=== PATIENT | female | born 1975 | race Caucasian/White ===

== ENCOUNTER → 2017-07-29 06:56 | Outpatient (CLI) | payer OTHER, SELFPAY ==
[2017-07-29 07:56] LABS: Glucose GTT-Gestation. Fasting 77 mg/dL (<105)
[2017-07-29 08:27] LABS: Glucose GTT-Gestational 1 Hr 176 mg/dL (<190)
[2017-07-29 10:13] LABS: Glucose GTT-Gestational 2 Hr 167 mg/dL (<165)
[2017-07-29 10:57] LABS: Glucose GTT-Gestational 3 Hr 86 L (<145)
== END ==
PROVIDERS: Family Provider Family Medicine; PCP Family Medicine; Visit Provider Obstetrics & Gynecology
DX: O24.912 Unspecified diabetes mellitus in pregnancy, second trimester (principal); Z3A.00 Weeks of gestation of pregnancy not specified
CPT/HCPCS: 36415; 82951; 82952

== ENCOUNTER → 2017-09-08 19:15 | Outpatient (CLI) | payer OTHER, SELFPAY ==
[2017-09-08 21:00] LABS: Group B Strep DNA By PCR Negative (Negative); Internal Control PASS; Specimen Processing Control PASS
[2017-09-08 21:01] LABS: Probe Check PASS
== END ==
PROVIDERS: Visit Provider Obstetrics & Gynecology
DX: Z36.85 Encounter for antenatal screening for Streptococcus B (principal)
CPT/HCPCS: 87081; 87653

== ENCOUNTER 2017-09-25 06:40 | Inpatient (IN) | payer SELFPAY ==
[2017-09-25] MEDS: Lactated Ringers 1,000 ML 50 ML IV (11:30)
[2017-09-25 11:53] LABS: Hematocrit 34.4 % (37-47); Hemoglobin 11.4 g/dl (12.0-15.0); Mean Corp Hgb Conc 33.1 g/gl (32-36); Mean Corpuscular Hgb 31.6 pg (27.0-32.0); Mean Corpuscular Volume 95.3 fL (81-99); Mean Platelet Vol. 10.6 fl (6.2-12.0); Platelet Count 258 K/mm3 (150-450); RBC Distribution Width CV 12.6 % (11.6-14.6); RBC Distribution Width SD 43.6 fl (35.1-43.9); Red Blood Count 3.61 M/mm3 (4.2-5.4); Scan Indicated on CBC? Y/N NO
[2017-09-25] MEDS: Oxytocin 30 units/NS 500 ml 30 UNITS/500 ML IV.SOLN IV (12:15)
[2017-09-25 12:29] VITALS: BMI 48.3
[2017-09-25] MEDS: Nalbuphine 10 MG/ML Ampul IV (14:58)
[2017-09-25] MEDS: Oxytocin 30 units/NS 500 ml 30 UNITS/500 ML IV.SOLN 334 UNITS IV (15:36)
--- NOTE | 2017-09-25 15:58 | PCM.OB.VAG ---
Vaginal Delivery Maternal Presentation: Elective Induction Method of Induction: Pitocin, Amniotomy Amniotic Membrane Rupture Type: Artificial Amniotic Fluid Description: Clear Final SADIE: 10/02/17 Final SADIE Source: US <20 weeks Gestational age: 39 Weeks and 0 Days Date of Procedure: 09/25/17 Pre-Operative Diagnosis: IUP Post-Operative Diagnosis: IUP Surgery/ Procedure Performed: Spontaneous Vaginal Delivery Type of Anesthesia: Local with 1% lidocaine Description of Procedure: Spontaneous vaginal delivery of a viable male with Apgars of 8/9 from an occiput anterior presentation with clear amniotic fluid. No episiotomy. First-degree midline laceration repaired with 3-0 Rapide suture under local. Sponge counts okay. Delivery physician: Bill Shepard MD. Presentation: Vertex Placental Delivery Description: Spontaneous Placenta Disposition: [facility] Cord Vessel Description: 3 Vessels Cord Entanglement: None Estimated Blood Loss: 250 cc A gender: Male (1 minute): 8 (5 minute): 9 Episiotomy Description: None Laceration: Midline, Perineal Extension/lac, 1st degree Medications given after delivery: IV Pitocin Complications: None
--- NOTE | 2017-09-25 16:01 | OP.PCM_ITS ---
Vaginal Delivery Maternal Presentation: Elective Induction Method of Induction: Pitocin, Amniotomy Amniotic Membrane Rupture Type: Artificial Amniotic Fluid Description: Clear Final SADIE: 10/02/17 Final SADIE Source: US <20 weeks Gestational age: 39 Weeks and 0 Days Date of Procedure: 09/25/17 Pre-Operative Diagnosis: IUP Post-Operative Diagnosis: IUP Surgery/ Procedure Performed: Spontaneous Vaginal Delivery Type of Anesthesia: Local with 1% lidocaine Description of Procedure: Spontaneous vaginal delivery of a viable male with Apgars of 8/9 from an occiput anterior presentation with clear amniotic fluid. No episiotomy. First- degree midline laceration repaired with 3-0 Rapide suture under local. Sponge counts okay. Delivery physician: Bill Shepard MD. Presentation: Vertex Placental Delivery Description: Spontaneous Placenta Disposition: [facility] Cord Vessel Description: 3 Vessels Cord Entanglement: None Estimated Blood Loss: 250 cc A gender: Male (1 minute): 8 (5 minute): 9 Episiotomy Description: None Laceration: Midline, Perineal Extension/lac, 1st degree Medications given after delivery: IV Pitocin Complications: None
--- NOTE | 2017-09-25 16:02 | DCINST_ITS ---
Discharge Diet: No Restrictions Discharge Activity: May Shower, May Take a Tub Bath May resume sexual activity in: 4-6 weeks Additional Activity Instructions:: Nothing in the vagina for 4-6 weeks. You may return to work/school in 6 weeks. Call your doctor if you observe: Fever of 101 or Higher, Inability to urinate, Inability to have a bowel movement, Using more than one pad per hour Additional Instructions: If you experience any of the following, contact your healthcare provider. * Bleeding that soaks a pad every hour for 2 hours * Unrelieved incision or abdominal pain * Swelling, redness, discharge or bleeding from your incision or episiotomy site * Your incision begins to separate * Problems urinating (including inability to urinate or burning while urinating) . * Visual changes * Severe headache * Flu-like symptoms * Pain or redness in one of both of your breasts * Pain, warmth, tenderness or swelling in your legs, especially the calf area * Frequent nausea and vomiting * Symptoms of depression or anxiety If you experience any of the following, call 911 or go to the nearest Emergency Room. * Chest pain * Problems breathing * Seizure activity * Partial or complete paralysis of a body part, slurred speech, weakness or drooping of the face, or a sudden inability to walk or hold your balance Allergies/Adverse Reactions: Allergies acetaminophen [From Percocet] Allergy (Verified 09/25/17 13:14) Hives oxycodone [From Percocet] Allergy (Verified 09/25/17 13:14) Hives Penicillins Allergy (Verified 09/25/17 13:14) Hives propoxyphene [From Darvocet-N] Allergy (Verified 09/25/17 13:14) Hives Medications to take at Discharge Aspirin [Aspirin, Baby] 81 mg PO DAILY 09/25/17 Levothyroxine Sodium [Synthroid] 100 mcg DAILY 09/25/17 Vit No.130/Iron/FA [ Tablet] 1 tab PO DAILY 09/25/17 Please Follow Up With: Bill Shepard MD - [phone] When: Call to make an appointment with your doctor in 6 weeks. Primary Care Physician: Bill Valenzuela [Primary Care Provider] - Test Results: Test results from this visit will be discussed in further detail at your follow- up appointment, if applicable.
[2017-09-25] MEDS: Oxytocin 30 units/NS 500 ml 30 UNITS/500 ML IV.SOLN 167 UNITS IV (16:10)
[2017-09-25] MEDS: Ibuprofen 600 MG Tablet PO ×2 (16:36→22:37)
[2017-09-25 19:50] VITALS: BP 149/78; PULSE 71; RESP 18; TEMP 36.4; O2SAT 99
[2017-09-25 23:45] VITALS: BP 134/70; PULSE 80; RESP 18; TEMP 36.6; O2SAT 96
[2017-09-26 04:00] VITALS: BP 138/72; PULSE 84; RESP 16; TEMP 36.6; O2SAT 94
[2017-09-26] MEDS: Levothyroxine 100 MCG Tablet PO (06:29)
[2017-09-26 07:54] VITALS: BP 152/77; PULSE 76; RESP 20; TEMP 36.6
[2017-09-26] MEDS: Ibuprofen 600 MG Tablet PO ×2 (07:58→15:40)
--- NOTE | 2017-09-26 09:41 | PCM.PN.OB ---
Subjective: day #1 Patient without complaints. Denies PIH symptoms. Minimal vaginal bleeding. Breast-feeding going well. Wants to stay another day. - Physical Exam Vital Signs Temp Pulse Resp BP Pulse Ox 97.8 F 76 20 H 152/77 H 94 09/26/17 07:54 09/26/17 07:54 09/26/17 07:54 09/26/17 07:54 09/26/17 04:00 Oxygen Delivery Method Room Air Weight: 256 lb Body Mass Index (BMI) 48.3 Intake and Output for Last 24 Hours 09/24/17 09/25/17 09/26/17 23:59 23:59 23:59 Intake Total 2174 / 2174 Output Total 300 / 300 Balance 1874 / 1874 Laboratory Tests Past 24 Hrs 09/25/17 09/25/17 09/25/17 11:35 11:35 11:35 WBC 9.0 RBC 3.61 L Hgb 11.4 L Hct 34.4 L MCV 95.3 MCH 31.6 MCHC 33.1 RDW 12.6 RDW Differential 43.6 Plt Count 258 MPV 10.6 Blood Type A NEGATIVE Antibody Screen TNP NEGATIVE Screen Baby's Blood Type Baby's BONY 09/25/17 18:35 WBC RBC Hgb Hct MCV MCH MCHC RDW RDW Differential Plt Count MPV Blood Type Antibody Screen Screen NEGATIVE Baby's Blood Type A POSITIVE Baby's BONY NEGATIVE Medical Necessity - Tobacco Use Smoking Status: Never smoker Assessment/Plan Doing well day #1. Continuing present care. Discussed that we may need to start low-dose blood pressure medicine and continue for a few weeks at home if her blood pressures remain moderately elevated.
--- NOTE | 2017-09-26 10:11 | NURSING ---
[id number] dr tatum marie made aware of morning Bp 152/70
[2017-09-26 12:00] VITALS: BP 140/72; PULSE 82; RESP 16; TEMP 36.6
[2017-09-26 16:00] VITALS: BP 140/79; PULSE 81; RESP 18; TEMP 36.6
--- NOTE | 2017-09-26 16:00 | NURSING ---
Received report from Monet TAMEZ. I will assume care of patient at this time.
--- NOTE | 2017-09-26 19:35 | NURSING ---
Report given to Dell Beebe RN. She will assume care of patient at this time.
[2017-09-26 20:00] VITALS: BP 143/81; PULSE 91; RESP 20; TEMP 36.4
[2017-09-27] VITALS (10 sets, daily range): BP systolic 148–169; BP diastolic 77–90; PULSE 79–87; RESP 18–24; TEMP 36.6–36.9
[2017-09-27] MEDS: Ibuprofen 600 MG Tablet PO (01:43)
[2017-09-27] MEDS: Levothyroxine 100 MCG Tablet PO (05:39)
--- NOTE | 2017-09-27 08:00 | PCM.PN.OB ---
Subjective: Doing well. Wants to go home. Denies PIH symptoms. - Physical Exam Vital Signs AF, VSS. Blood pressure stable Temp Pulse Resp BP Pulse Ox 98.0 F 87 18 149/86 H 94 09/27/17 01:37 09/27/17 01:37 09/27/17 01:37 09/27/17 01:37 09/26/17 04:00 Oxygen Delivery Method Room Air Weight: 256 lb Body Mass Index (BMI) 48.3 Intake and Output for Last 24 Hours 09/25/17 09/26/17 09/27/17 23:59 23:59 23:59 Intake Total 2174 / 2174 Output Total 300 / 300 Balance 1874 / 1874 Medical Necessity - Tobacco Use Smoking Status: Never smoker Assessment/Plan Doing well. Will release to home with routine instructions. Follow-up in 1-2 weeks for blood pressure check. To call with any PIH symptoms.
[2017-09-27] MEDS: NIFEdipine 30 MG Tablet PO ×2 (08:37→15:19)
--- NOTE | 2017-09-27 15:00 | NURSING ---
Received report from Belén Gonzalez RN. I will assume care of patient at this time.
--- NOTE | 2017-09-27 15:28 | NURSING ---
Called [facility] pharmacy to confirm that they received patient's prescription for Procardia. Prescription was received and will be ready for pickup.
== END 2017-09-27 16:35 | disposition home or self-care (01) | DRG 774 ==
PROVIDERS: Admitting Provider Obstetrics & Gynecology; Family Provider Family Medicine; PCP Family Medicine; Visit Provider Obstetrics & Gynecology
DX: O70.0 First degree perineal laceration during delivery (principal); O90.89 Other complications of the puerperium, not elsewhere classified; R03.0 Elevated blood-pressure reading, without diagnosis of hypertension; Z3A.39 39 weeks gestation of pregnancy; Z37.0 Single live birth
CPT/HCPCS: 59025; 59050; 85027; 85461; 86850; 86900; 90384; 99218; J7120; G0378; J2790

== ENCOUNTER → 2017-11-03 13:45 | Outpatient (CLI) | payer OTHER, SELFPAY ==
[2017-11-11 14:44] LABS: HPV Reflexed? NOT INDICATED
== END ==
PROVIDERS: Visit Provider Obstetrics & Gynecology
DX: Z12.4 Encounter for screening for malignant neoplasm of cervix (principal)
CPT/HCPCS: 88175; G0145

== ENCOUNTER → 2018-10-05 | Outpatient (CLI) | payer OTHER, SELFPAY ==
--- NOTE | 2018-10-05 13:00 | EMB_PTH ---
PATIENT: JORJE CORTES LOC: [facility] U#:[id number] AGE/SX: 43/F ROOM: RE10/05/[address]: Dr. Bill Shepard MD : 1975 BED: DIS: 10/05/2018 SPEC #: [id number] RECD: 10/06/18 10:38 STATUS: ESTEBAN JOSSELYN #: [id number] GARCIA: 10/05/18 13:[address]: Bill Shepard DEPT: SURGICAL PATHOLOGY RECD BY: Mehul Marie ENTERED: 10/06/18 12:38 SP TYPE: ENDOM BX/C SHANNON DR: Dr. Bill Valenzuela MD Tissues: Endometrium, NOS Procedures: Surgery Specimen Level IV HEADER OPERATION: Endometrial biopsy PRE-OP DIAGNOSIS: Abnormal uterine bleeding N93.8 TISSUE SUBMITTED: Endometrial biopsy MICROSCOPIC DIAGNOSIS Endometrium, biopsy: Secretory endometrium with glandular and stromal layer breakdown. See comment. AM:sofi 10/07/18 COMMENT The findings are consistent with a perimenstrual endometrium. Clinical correlation is suggested. Case has been reviewed in consultation with Dr. Oquendo who concurs with the above diagnosis. IDC:SJ MICROSCOPIC DESCRIPTION Slides are reviewed. GROSS DESCRIPTION Received in fixative is one container labeled with the patient's name and designated EM biopsy. The specimen consists of multiple fragments of hemorrhagic soft tissue that in aggregate measure 5 x 3 x 0.3 cm. The entire specimen is submitted in two cassettes. / GIANLUCA:sofi 10/06/18 TC:5 CPT: 86528
== END | disposition home or self-care (01) ==
LOC: LABSPEC 10-06 10:57
PROVIDERS: Family Provider Family Medicine; PCP Family Medicine; Referring Provider Obstetrics & Gynecology; Visit Provider Obstetrics & Gynecology
DX: N85.8 Other specified noninflammatory disorders of uterus (principal); N93.8 Other specified abnormal uterine and vaginal bleeding
CPT/HCPCS: 88305

== ENCOUNTER → 2019-01-19 10:08 | Outpatient (CLI) | payer OTHER, SELFPAY ==
[2019-01-19 12:20] LABS: Chlamydia Trachomatis by PCR Negative (Negative); Neisserai gonorrhoeae by PCR Negative (Negative)
[2019-01-19 12:21] LABS: Probe Check PASS; Sample Adequacy Control PASS; Specimen Processing Control PASS
[2019-01-21 20:47] LABS: HPV Reflexed? NOT INDICATED
== END ==
PROVIDERS: Family Provider Family Medicine; PCP Family Medicine; Visit Provider Obstetrics & Gynecology
DX: Z12.4 Encounter for screening for malignant neoplasm of cervix (principal); Z11.3 Encounter for screening for infections with a predominantly sexual mode of transmission
CPT/HCPCS: 87491; 87591; 88175; G0145